=== PATIENT | female | born 1955 | race Caucasian/White ===

== ENCOUNTER 2019-12-27 08:57 | Outpatient (CLI) | payer OTHER, SELFPAY ==
--- NOTE | 2020-01-05 15:10 | WPDSIXMINUTE ---
Six Minute Walk Six Minute Walk: DOS: 12/27/2019 REQUESTING: Dr. Burns REASON FOR TESTING: COPD SIX MINUTE WALK This test was conducted per ATS guidelines. Initial saturation was 95% and pulse was 70. Saturation remained normal with the final saturation of 97%. Pulse increased to 96 beats per minute. Ending pulse was 79, ending saturation 97%. Patient walked 600 ft/ 183 m. IMPRESSION: This walk study Shows no desaturation. Heart rate response is normal. Distance walked is less than expected for age.
--- NOTE | 2020-01-05 15:13 | WPDPFTINT ---
PFT Interpretation PFT Interpretation: DOS: 12/27/2019 REQUESTING: Dr. Menjivar REASON FOR TESTING: COPD PULMONARY FUNCTION TESTS Results are reliable and reproducible Spirometry: FEV1 normal, 80% predicted, 1.7 L. FVC 107% normal. FEV1% is decreased, consistent with airflow obstruction. [id number]% is severely decreased 23% predicted. There is no change after bronchodilator administration. Lung volumes: TLC 131% mildly increased consistent with mild hyperinflation. RV 170% severe air trapping. normal airway resistance Diffusion: DLCO 59% moderately decreased Flow volume loop: Scooping of the expiratory limb IMPRESSION: Mild airflow obstruction which is severe in the small airways, mild hyperinflation, severe air trapping with moderate diffusion impairment. No change with bronchodilator. Lack of response to bronchodilator should not preclude use if clinically indicated. This pattern is consistent with COPD. Sarahi Ramirez MD
== END 2019-12-27 08:58 | disposition home or self-care (01) ==
PROVIDERS: PCP Nurse Practitioner Family; Visit Provider Internal Medicine Critical Care Medicine
DX: J44.9 Chronic obstructive pulmonary disease, unspecified (principal)
CPT/HCPCS: 94060; 94618; 94726; 94729

== ENCOUNTER 2020-01-20 14:21 | Emergency (ER) | payer OTHER, SELFPAY ==
[2020-01-20] VITALS (8 sets, daily range): BP systolic 131–153; BP diastolic 84–105; PULSE 80–151; RESP 14–24; TEMP 36.5; O2SAT 92–100
--- NOTE | ~2020-01-20 | XR_ITS ---
EXAMINATION: XR chest 2V DATE: 01/20/2020 15:16 INDICATION: Atrial fibrillation. TECHNIQUE: Frontal and lateral views of the chest were obtained. COMPARISON: Chest 2 views 11/18/2007, CT abdomen and pelvis 09/23/2017 FINDINGS: There is mild atelectasis in the lower lung zones. No pleural effusion or pneumothorax. The heart size is normal. There are prominent paracardial fat pads. IMPRESSION: 1. Mild atelectasis in the lower lung zones. Reviewed, dictated and finalized at location A.
--- NOTE | 2020-01-20 14:24 | ECG_ITS ---
Measurements Intervals [place] Rate: 141 P: [place]: 0 QRS: -16 QRSD: 86 T: 74 QT: 290 QTc: 444 Interpretive Statements ATRIAL FIBRILLATION WITH RAPID VENTRICULAR RESPONSE VENTRICULAR PREMATURE COMPLEX DELAYED PRECORDIAL R/S TRANSITION NONSPECIFIC ST & T-WAVE ABNORMALITY- HIGH LATERAL LEADS ABNORMAL ECG Electronically Signed On 01-20-2020 14:37:06 CDT by Vinnie Rdz D.O.
[2020-01-20 14:44] LABS: Hemoglobin 15.5 g/dL (12.0-15.0); Mean Corpuscular Hemoglobin 29.4 pg (26-34); Mean Platelet Volume 8.8 fl (7.4-10.4); Platelet Count Result 396 k/mm3 (150-375); Red Blood Count 5.28 M/mm3 (4.2-5.4); White Blood Count 13.7 K/mm3 (4.5-10.0)
[2020-01-20 14:54] LABS: INR 1.3; Prothrombin Time 15.9 Seconds (11.1-14.7)
[2020-01-20 14:55] LABS: Partial Thromboplastin Time 31.4 SECONDS (22.3-36.8)
[2020-01-20 14:56] LABS: Anion Gap 10 mmol/L (8-16); Blood Urea Nitrogen 17 mg/dL (7-17); Calcium 9.8 mg/dL (8.4-10.2); Carbon Dioxide 26 mmol/L (22-30); Chloride 103 mmol/L (98-107); Estimated CRCL calculation 67 ml/min; Estimated Glomerular Filt Rate 56; Glucose 109 mg/dL (65-105); Potassium 4.5 mmol/L (3.4-5.0); Sodium 139 mmol/L (137-145)
[2020-01-20] MEDS: dilTIAZem HCl INJ 25 MG/5 ML VIAL 10 MG IV PUSH (14:58)
[2020-01-20 15:08] LABS: Troponin I < 0.012 ng/mL (0.000-0.034)
[2020-01-20 15:14] LABS: Band Neutrophils Percent 1 % (0-6); Eosinophils Absolute Manual 0.13 K/mm3 (0.02-0.5); Eosinophils Percent Manual 1 % (0-4); Lymphocytes Absolute Manual 4.93 K/mm3 (1.1-4.5); Monocytes Absolute Manual 0.82 K/mm3 (0.1-0.90); Monocytes Percent Manual 6 % (3-9); Neutrophils Percent Manual 56 % (46-73); Total Cells Counted 100
[2020-01-20 15:15] LABS: Anisocytosis 2+ (NORMAL)
--- NOTE | 2020-01-20 15:50 | ED.ARRPALP ---
HPI - Arrhythmia/Palpitations General Chief Complaint: Arrhythmia/Palpitations Stated Complaint: afib Time Seen by Provider: 01/20/20 14:41 History of Present Illness HPI narrative: Patient is a 64-year-old female who presents to the ER with an arrhythmia. Patient went to her pulmonology appointment today and was told that she is in atrial fibrillation with RVR. Prior to this she had not been having chest pain or shortness of breath. No exertional fatigue orthopnea. Upon learning that she was tachycardic patient became extremely anxious and tearful. She was having trouble controlling her emotions. She does have history of anxiety for which she takes Ativan. Related Data Home Medications Medication Instructions Recorded Confirmed albuterol sulfate INHALATION 01/20/20 atorvastatin 01/20/20 budesonide-formoterol [Symbicort] INHALATION 01/20/20 buspirone mg 01/20/20 diltiazem HCl PO 01/20/20 duloxetine mg PO 01/20/20 ergocalciferol (vitamin D2) 01/20/20 levothyroxine 01/20/20 lisinopril 01/20/20 lorazepam 01/20/20 metformin mg PO 01/20/20 metoprolol succinate PO 01/20/20 rivaroxaban [Xarelto] mg 01/20/20 01/20/20 tiotropium bromide [Spiriva INHALATION 01/20/20 Respimat] Allergies Allergy/AdvReac Type Severity Reaction Status Date / Time adhesive tape Allergy Intermediate Itching Verified 01/20/20 15:58 Review of Systems Review of Systems: All systems reviewed & are unremarkable except as noted in HPI and below Constitutional: Constitutional: Denies chills, Denies fever(s) and Denies weakness ENT: Denies nasal congestion and Denies sore throat Cardiovascular: Cardiovascular: Denies chest pain, Denies rapid heart rate and Denies radiating jaw, neck or arm pain Respiratory: Respiratory: Denies cough, Denies dyspnea and Denies wheezing Gastrointestinal: Gastrointestinal: Denies nausea and Denies vomiting Psychiatric: Psychiatric: Reports anxiety [facility] Past Medical History Medical History (Updated 01/20/20 @ 18:34 by Toño Shetty MD) Anxiety Atrial fibrillation COPD (chronic obstructive pulmonary disease) Depression GERD (gastroesophageal reflux disease) History of intestinal obstruction Hypertension Kidney stones Surgical History Surgical History (Updated 01/20/20 @ 15:52 by Toño Shetty MD) History of section History of cholecystectomy Social History Social History Gender identity (if verbalized by the patient): Female Exam Narrative: Exam Narrative: GENERAL: Anxious and tearful-appearing, well-nourished. HEAD: Normocephalic, atraumatic. ENT: Mucous membranes moist. CHEST: Clear to auscultation. No respiratory distress. HEART: Tachycardic and irregular regular. Normal peripheral pulses. ABDOMEN: Soft, nontender, nondistended. EXTREMITIES: Normal range of motion. No edema. NEURO: Alert and oriented x3. PSYCH: Anxious but normal thought content no hallucinations.. Course Course Emergency Course: Patient was in A. fib RVR. She received 25 mg of diltiazem IV which did not convert her heart rate. She was then started on a diltiazem drip at 5 mg/h. She then converted to a sinus rhythm. Patient feels much better and would like to go home. I have contacted Surinder CLEARY with [facility] who is nonprofit director for Dr. Navarro. Reports patient can continue her home medications and follow-up in the clinic. Patient verbalized understanding this. Discharge home. Vital Signs Vital signs: Vital Signs Temperature 97.7 F 01/20/20 14:25 Pulse Rate 119 H 01/20/20 14:25 Respiratory Rate 20 01/20/20 14:25 Blood Pressure 153/105 H 01/20/20 14:25 Pulse Oximetry 100 01/20/20 14:25 Temperature 97.7 F 01/20/20 14:25 Pulse Rate 80 01/20/20 17:44 Respiratory Rate 18 01/20/20 17:44 Blood Pressure 136/88 01/20/20 17:44 Pulse Oximetry 100 01/20/20 17:44 MDM - Arrhythmia/Palpitations Lab Data Result diagrams: 01/19
[2020-01-20] MEDS: LORazepam INJ (*CRX) 2 MG/ML VIAL 1 MG IV PUSH (15:53)
[2020-01-20] MEDS: dilTIAZem HCl INJ 25 MG/5 ML VIAL 15 MG IV PUSH (15:57)
[2020-01-20 18:37] LABS: Troponin I < 0.012 ng/mL (0.000-0.034)
== END 2020-01-20 18:54 | disposition home or self-care (01) ==
PROVIDERS: Emergency Provider Emergency Medicine; PCP Nurse Practitioner Family
DX: I48.91 Unspecified atrial fibrillation (principal); J44.9 Chronic obstructive pulmonary disease, unspecified; K21.9 Gastro-esophageal reflux disease without esophagitis; F32.9 Major depressive disorder, single episode, unspecified; F41.9 Anxiety disorder, unspecified; I10 Essential (primary) hypertension; Z87.442 Personal history of urinary calculi
CPT/HCPCS: 36415; 71046; 80048; 84484; 85025; 85610; 85730; 93005; 96365; 96366; 96375; 96376; 99284; J2060

== ENCOUNTER 2020-06-07 19:37 | Emergency (ER) | payer SELFPAY ==
[2020-06-07 19:37] VITALS: BP 143/107; PULSE 83; RESP 24; TEMP 36.8; O2SAT 94
--- NOTE | 2020-06-07 19:52 | ED.ARRPALP ---
HPI - Arrhythmia/Palpitations General Chief Complaint: Arrhythmia/Palpitations Stated Complaint: numbness all over/afib History of Present Illness HPI narrative: 64 yo female w/ h/o atrial fibrillation, anxiety, DM presents to the ED for palpitations. She reports that she began to feel numb all over. and called for EMS when they arrived they found her to be in atrial fibrillation with a rate of 170. On the way to the ED she converted to sinus rhythm. She is not having any symptoms at this time. She had not taken eliquis for the past 4 days due to dental extractions, but resumed today. No chest pain ,SOB. Related Data Home Medications Medication Instructions Recorded Confirmed albuterol sulfate INHALATION 01/20/20 atorvastatin 10 mg PO DAILY 01/20/20 budesonide-formoterol [Symbicort] INHALATION 01/20/20 buspirone mg 01/20/20 diltiazem HCl 120 mg PO DAILY 01/20/20 duloxetine 60 mg PO DAILY 01/20/20 ergocalciferol (vitamin D2) 01/20/20 levothyroxine 01/20/20 lisinopril 01/20/20 lorazepam 01/20/20 metformin 500 mg PO DAILY 01/20/20 metoprolol succinate 100 mg PO DAILY 01/20/20 rivaroxaban [Xarelto] mg 01/20/20 01/20/20 tiotropium bromide [Spiriva INHALATION 01/20/20 Respimat] Allergies Allergy/AdvReac Type Severity Reaction Status Date / Time adhesive tape Allergy Intermediate Itching Verified 01/20/20 15:58 Review of Systems Review of Systems: All systems reviewed & are unremarkable except as noted in HPI and below Constitutional: Constitutional: Denies fever(s) and Denies weakness Eyes: Eyes: Reports no additional eye complaints ENT: Reports system reviewed and no additional complaints, except as documented Cardiovascular: Cardiovascular: Denies chest pain and Reports rapid heart rate Respiratory: Respiratory: Denies dyspnea Gastrointestinal: Gastrointestinal: Denies abdominal pain, Denies nausea and Denies vomiting Genitourinary: Genitourinary: Reports no additional female genitourinary complaints Neurologic: Reports system reviewed and no additional complaints, except as documented [facility] Past Medical History Medical History Anxiety Atrial fibrillation COPD (chronic obstructive pulmonary disease) Depression GERD (gastroesophageal reflux disease) History of intestinal obstruction Hypertension Kidney stones Surgical History Surgical History History of section History of cholecystectomy Social History Social History Gender identity (if verbalized by the patient): Female Exam Const: General: no acute distress and alert Nutritional Appearance: obese Orientation/consciousness: patient oriented x3 HENMT: Head: normal to inspection Eyes: Conjunctivae: conjunctivae normal Pupils: Equal, round and reactive pupils present EOM: EOMs intact bilaterally Neck: Neck: normal visual inspection Resp: Effort & Inspection: normal respiratory effort Auscultation: clear to auscultation bilaterally Cardio: Rate: regular rate Rhythm: regular rhythm Skin: General skin exam: normal color Neuro: General: patient oriented x3, moves all extremities, no focal motor deficits and CN's II-XI intact bilaterally Speech: normal speech Gait exam (Neuro): Normal gait present Extrem: General: normal to inspection Course Vital Signs Vital signs: Vital Signs Temperature 36.8 C 06/07/20 19:37 Pulse Rate 83 06/07/20 19:37 Respiratory Rate 24 H 06/07/20 19:37 Blood Pressure 143/107 H 06/07/20 19:37 Pulse Oximetry 94 06/07/20 19:37 Temperature 36.8 C 06/07/20 19:37 Pulse Rate 87 06/07/20 21:20 Respiratory Rate 16 06/07/20 21:20 Blood Pressure 147/97 H 06/07/20 21:20 Pulse Oximetry 94 06/07/20 21:20 MDM - Arrhythmia/Palpitations MDM Narrative Medical decision making narrative:
--- NOTE | 2020-06-07 19:53 | ECG_ITS ---
Measurements Intervals [place] Rate: 78 P: 51 MN: 162 QRS: -32 QRSD: 85 T: 44 QT: 382 QTc: 437 Interpretive Statements SINUS RHYTHM LEFT AXIS DEVIATION LEFT ATRIAL ENLARGEMENT DELAYED PRECORDIAL R/S TRANSITION BORDERLINE ECG Electronically Signed On 06-08-2020 7:05:08 APPRAISER AUDITOR by Vinnie Rdz D.O.
[2020-06-07 20:09] LABS: Basophils Absolute Auto 0.1 K/mm3 (0.0-0.1); Basophils Percent Auto 0.7 % (0.2-1.2); Eosinophils Absolute Auto 0.2 K/mm3 (0-0.3); Eosinophils Percent Auto 1.4 % (0-4.4); Hematocrit 48.5 % (37.0-47.0); Hemoglobin 15.9 g/dL (12.0-15.0); Immature Granulocyte Absolute 0.06 K/mm3 (0.00-0.031); Immature Granulocyte Percent A 0.5 % (0-0.5); Lymphocytes Absolute Auto 2.89 K/mm3 (0.9-3.2); Mean Corpuscular HGB Conc 32.8 g/dl (32-36); Mean Corpuscular Hemoglobin 29.7 pg (26-34); Mean Corpuscular Volume 90.5 fl (80-100); Mean Platelet Volume 9.5 fl (7.4-10.4); Monocytes Absolute Auto 0.9 K/mm3 (0.1-0.6); Monocytes Percent Auto 6.7 % (2.6-8.5); Neutrophils Absolute Auto 9.1 K/mm3 (1.3-6.7); Neutrophils Percent Auto 68.7 % (45.5-73.1); Platelet Count Result 341 k/mm3 (150-375); Red Blood Count 5.36 M/mm3 (4.2-5.4); Red Cell Distribution Width 15.7 % (11.5-14.5); White Blood Count 13.2 K/mm3 (4.5-10.0)
[2020-06-07 20:28] LABS: INR 1.1; Prothrombin Time 14.6 Seconds (11.1-14.7)
[2020-06-07 20:29] LABS: Partial Thromboplastin Time 31.1 SECONDS (22.3-36.8)
[2020-06-07 21:20] VITALS: BP 147/97; PULSE 87; RESP 16; O2SAT 94
[2020-06-07 21:21] LABS: Anion Gap 7 mmol/L (8-16); Blood Urea Nitrogen 23 mg/dL (7-17); Calcium 9.6 mg/dL (8.4-10.2); Carbon Dioxide 28 mmol/L (22-30); Chloride 103 mmol/L (98-107); Estimated CRCL calculation 50 ml/min; Estimated Glomerular Filt Rate 38; Glucose 164 mg/dL (65-105); Potassium 3.9 mmol/L (3.4-5.0); Sodium 138 mmol/L (137-145)
[2020-06-07 21:33] LABS: Troponin I < 0.012 ng/mL (0.000-0.034)
== END 2020-06-07 21:47 | disposition home or self-care (01) ==
PROVIDERS: Emergency Provider Emergency Medicine; PCP Nurse Practitioner Family
DX: I48.91 Unspecified atrial fibrillation (principal); F41.9 Anxiety disorder, unspecified; J44.9 Chronic obstructive pulmonary disease, unspecified; F32.9 Major depressive disorder, single episode, unspecified; K21.9 Gastro-esophageal reflux disease without esophagitis; I10 Essential (primary) hypertension
CPT/HCPCS: 36415; 80048; 84484; 85025; 85610; 85730; 93005; 99284

== ENCOUNTER → 2021-08-01 08:04 | Outpatient (CLI) | payer BC, SELFPAY ==
--- NOTE | ~2021-08-01 | MMUS_ITS ---
EXAMINATION: MM diagnostic joy BI w jen, US breast LT complete HISTORY: Breast pain. History of DCIS. TECHNIQUE: ML, MLO and CC 3-D tomosynthesis images of both breasts and additional compression 3-D Tomosynthesis views of left breast were performed and synthetic 2-D images were generated. Rotated lateral craniocaudal views of each breast. CAD analysis was submitted and interpreted. High resolution complete left breast ultrasound including all 4 quadrants and subareolar area was performed. COMPARISON: 03/17/2019, 08/11/2017, 08/16/2016 bilateral screening mammogram examinations BREAST PARENCHYMAL COMPOSITION: There are scattered areas of fibroglandular density. 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 No suspicious mass or interval architectural distortion, malignant calcification, skin thickening or retraction of the right breast is evident. Left breast: Increased density is noted in the posterior lateral left breast. There is focal linear prominence in the slightly medial lower left subareolar area. Possible 7.5 mm mass in the lower mid left breast suggested on CC projection. Left complete breast ultrasound examination was performed. ULTRASOUND: 12:00 4.5 cm from nipple: There is a focal hypoechoic area 5.5 mm deep to the skin, measuring up to 5.7 mm width, with very prominent posterior shadowing in the area of an overlying scar. Ultrasound-guided biopsy is recommended. 1:00 5 cm from nipple: Parallel circumscribed sonolucency measuring 7.8 x 4.4 x 10 mm, with through transmission, consistent with cyst Subareolar area: Parallel circumscribed 7.2 x 4 x 6.5 mm parallel circumscribed hypoechoic lesion with through transmission, likely benign IMPRESSION: 1. Approximately 5.7 mm hypoechoic area with very prominent posterior shadowing at left breast 12:00 4.5 cm from nipple 2. Ultrasound-guided biopsy of left breast 12:00 areas recommended BI-RADS category 4, suspicious findings. Dr. Zepeda telephoned the report and ultrasound-guided biopsy recommendation on 07/2021 at 1111 hours to Darling PAIZ
== END ==
PROVIDERS: PCP Nurse Practitioner Family; Visit Provider Obstetrics & Gynecology
DX: N64.4 Mastodynia (principal); R92.8 Other abnormal and inconclusive findings on diagnostic imaging of breast
CPT/HCPCS: 76641; 77062; 77066; G0279

== ENCOUNTER 2021-08-01 08:08 | Outpatient (CLI) | payer BC, SELFPAY ==
--- NOTE | ~2021-08-01 | XR_ITS ---
EXAMINATION: XR chest 2V DATE: 08/01/2021 12:52 INDICATION: Cough and shortness of breath. Legionella pneumonia. TECHNIQUE: Frontal and lateral views of the chest were obtained. COMPARISON: Chest 2 views 01/20/2020 FINDINGS: There is mild atelectasis in left lower lung zone. No pleural effusion or pneumothorax. The heart size is normal. There are prominent paracardial fat pads. IMPRESSION: 1. Mild atelectasis in left lower lung zone. Reviewed, dictated and finalized at location B.
== END 2021-08-01 08:09 ==
PROVIDERS: PCP Nurse Practitioner Family; Visit Provider Nurse Practitioner
DX: A48.1 Legionnaires' disease (principal); J98.11 Atelectasis
CPT/HCPCS: 71046

== ENCOUNTER 2022-03-31 17:02 | Observation (INO) | payer BC, SELFPAY ==
[2022-03-31] VITALS (20 sets, daily range): BP systolic 134–148; BP diastolic 72–98; PULSE 67–83; RESP 16–21; TEMP 36.1–36.4; O2SAT 87–99; BMI 48.7
--- NOTE | ~2022-03-31 | XR_ITS ---
EXAMINATION: XR chest 2V Exam Date/Time: 03/31/2022 18:10 ELECTRICIAN OUTSIDE HISTORY: SOB, difficult catching breath, weak, hx copd Comparison: 08/01/2021. RESULT: Lines, tubes, and devices: None. Lungs and pleura: Clear. Emphysematous change. Left lower lung scar. Cardiomediastinal silhouette: Stable. Other: No acute osseous or upper abdominal finding. IMPRESSION: No acute cardiopulmonary process. Reviewed, dictated and finalized at location K. TRICIAN OUTSIDE
--- NOTE | 2022-03-31 17:07 | ECG_ITS ---
Measurements Intervals [place] Rate: 79 P: 51 CO: 166 QRS: -11 QRSD: 89 T: 53 QT: 380 QTc: 436 Interpretive Statements SINUS RHYTHM FREQUENT VENTRICULAR PREMATURE COMPLEXES BORDERLINE R WAVE PROGRESSION, ANTERIOR LEADS BORDERLINE ST-T WAVE ABNORMALITY- HIGH LATERAL LEADS ABNORMAL ECG COMPARED TO ECG 06/07/2020 19:47:29 FREQUENT VENTRICULAR PREMATURE COMPLEXES NOW PRESENT Electronically Signed On 04-01-2022 7:48:15 DIVERSITY INTERN by Vinnie Rdz D.O.
[2022-03-31 18:14] LABS: Influenza A QL RT-PCR Negative (Negative); Influenza B QL RT-PCR Negative (Negative); SARS-CoV-2 RNA PCR Negative
--- NOTE | 2022-03-31 19:38 | ED.GENADULT ---
HPI - General Adult General Chief complaint: Shortness of Breath/Dyspnea Stated complaint: Shortness of breath x 2 days Time Seen by Provider: 03/31/22 19:28 Source: RN notes reviewed History of Present Illness HPI narrative: Patient presents emergency department from home for shortness of breath. Patient states he has been feeling increasingly short of breath for the past 2 days. States has been associate with a cough this been productive of yellow sputum. Patient states she has a history of COPD and is normally on oxygen at night but not during the day. She denies any fevers or chills or chest pain she denies any abdominal pain nausea or vomiting. States she has been using her inhaler at home with minimal relief states she no longer smokes cigarettes. Patient is currently on Xarelto which she has been taking Related Data Home Medications Medication Instructions Recorded Confirmed albuterol sulfate 90 mcg/actuation inhalation 01/20/20 07/09/21 aerosol inhaler atorvastatin 10 mg tablet 10 mg PO DAILY 01/20/20 07/09/21 budesonide-formoterol HFA 160 inhalation 01/20/20 07/09/21 mcg-4.5 mcg/actuation aerosol inhaler (Symbicort) buspirone 7.5 mg tablet mg 01/20/20 07/09/21 diltiazem HCl 120 mg 120 mg PO DAILY 01/20/20 07/09/21 capsule,extended release 24 hr duloxetine 60 mg capsule,delayed 60 mg PO DAILY 01/20/20 07/09/21 release levothyroxine 100 mcg tablet 01/20/20 07/09/21 lisinopril 20 mg tablet 01/20/20 07/09/21 lorazepam 0.5 mg tablet 01/20/20 07/09/21 metformin 500 mg tablet,extended 500 mg PO DAILY 01/20/20 07/09/21 release 24 hr metoprolol succinate 100 mg 100 mg PO DAILY 01/20/20 07/09/21 tablet,extended release 24 hr rivaroxaban 20 mg tablet (Xarelto) mg 01/20/20 07/09/21 tiotropium bromide 2.5 inhalation 01/20/20 07/09/21 mcg/actuation mist for inhalation (Spiriva Respimat) digoxin 125 mcg (0.125 mg) tablet 125 mcg PO DAILY 07/09/21 07/09/21 diltiazem HCl 360 mg capsule,24 360 mg PO DAILY 07/09/21 07/09/21 hr,extended release (Tiadylt ER) semaglutide 0.25 mg or 0.5 mg (2 0.25 mg subcut WEEKLY 07/09/21 07/09/21 mg/1.5 mL) subcutaneous pen injector (Ozempic) sotalol 80 mg tablet 80 mg PO DAILY 07/09/21 07/09/21 Allergies Allergy/AdvReac Type Severity Reaction Status Date / Time adhesive tape Allergy Intermediate Itching Verified 07/09/21 08:44 Review of Systems Review of Systems: Gen.: Denies fevers or chills ENT: Denies congestion Respiratory: See HPI CV: Denies chest pain or palpitations GI: Denies abdominal pain nausea, emesis or diarrhea Musculoskeletal: Denies back pain or muscle pain Neuro: Denies numbness, tingling, weakness or focal weakness Skin: Denies rash Except as documented, all other systems reviewed and negative [facility] Past Medical History Medical History Anxiety Atrial fibrillation Breast cancer bilateral carcinoma ductal COPD (chronic obstructive pulmonary disease) Depression Diabetes GERD (gastroesophageal reflux disease) History of intestinal obstruction Hypertension Kidney stones Screening mammogram for breast cancer Surgical History Surgical History (Updated 07/09/21 @ 08:51 by Darling Dyer MA) H/O breast surgery History of section History of cholecystectomy Social History Social History Smoking status: Former smoker Alcohol intake: never Substance use: never Substance use type: does not use Gender identity (if verbalized by the patient): Female Sexual Orientation (if Verbalized by the Patient): Straight or Heterosexual Exam Narrative: APPEARANCE: No acute distress, nontoxic, resting in bed HEENT: Normocephalic, atraumatic OMM RESPIRATORY: Mild respiratory stress, wheezing throughout the bilateral lung miranda decreased breath sounds in the lung bases CARDIOVASCULAR: Regular rate and rhythm with
[2022-03-31] MEDS: methylPREDNISolone SOD SUCC 125 MG VIAL IV PUSH (19:53)
[2022-03-31] MEDS: IPRATROPIUM BR 0.02% INH SOLN 0.5 MG/2.5 ML VIAL INHALATION ×2 (20:03→21:38)
[2022-03-31] MEDS: ALBUTEROL SULFATE NEB 2.5 MG/3 ML INH 5 MG INHALATION ×2 (20:03→21:38)
[2022-03-31 20:11] LABS: Basophils Absolute Auto 0.1 K/mm3 (0.0-0.1); Basophils Percent Auto 0.9 % (0.2-1.2); Eosinophils Absolute Auto 0.2 K/mm3 (0-0.3); Eosinophils Percent Auto 1.3 % (0-4.4); Hemoglobin 14.9 g/dL (12.0-15.0); Immature Granulocyte Absolute 0.08 K/mm3 (0.00-0.031); Immature Granulocyte Percent A 0.7 % (0-0.5); Lymphocytes Absolute Auto 2.42 K/mm3 (0.9-3.2); Lymphocytes Percent Auto 21.6 % (18.3-44.2); Mean Corpuscular HGB Conc 31.7 g/dl (32-36); Mean Corpuscular Hemoglobin 29.3 pg (26-34); Mean Corpuscular Volume 92.5 fl (80-100); Mean Platelet Volume 9.1 fl (7.4-10.4); Monocytes Absolute Auto 1.2 K/mm3 (0.1-0.6); Monocytes Percent Auto 10.7 % (2.6-8.5); Neutrophils Absolute Auto 7.2 K/mm3 (1.3-6.7); Neutrophils Percent Auto 64.8 % (45.5-73.1); Platelet Count Result 390 k/mm3 (150-375); Red Blood Count 5.08 M/mm3 (4.2-5.4); Red Cell Distribution Width 14.6 % (11.5-14.5); White Blood Count 11.2 K/mm3 (4.5-10.0)
[2022-03-31 20:23] LABS: INR 1.5; Prothrombin Time 17.5 Seconds (11.1-14.7)
[2022-03-31 20:24] LABS: Partial Thromboplastin Time 30.4 SECONDS (22.3-36.8)
[2022-03-31 20:25] LABS: Alanine Aminotransferase 34 U/L (6-35); Albumin Level 4.4 g/dL (3.5-5.1); Alkaline Phosphatase 168 U/L (38-126); Anion Gap 8 mmol/L (8-16); Aspartate Amino Transferase 28 U/L (14-36); Bilirubin,Total 0.3 mg/dL (0.2-1.3); Blood Urea Nitrogen 18 mg/dL (7-17); Calcium 9.2 mg/dL (8.4-10.2); Carbon Dioxide 27 mmol/L (22-30); Chloride 103 mmol/L (98-107); Estimated CRCL calculation 59 ml/min; Estimated Glomerular Filt Rate > 60; Glucose 168 mg/dL (65-110); Potassium 4.1 mmol/L (3.4-5.0); Sodium 138 mmol/L (137-145)
--- NOTE | 2022-03-31 22:57 | ADMGEN ---
This patient, Samia Levy, was admitted to 3 [facility] Surg Room 317-01. Patient/family oriented to hospital policies and general routines including ID bracelet, bed and alarms, visiting hours, pain management, procedures, bathroom and other care routines, personal items, smoking policy, room service/diet, and visiting hours. Information on how to activate the Rapid Response Team has been discussed. Patient/Family are encouraged to report perceived risks to care and to ask questions if they do not understand what they are told or what they should do.
[2022-04-01] VITALS (12 sets, daily range): BP systolic 152–175; BP diastolic 86–98; PULSE 76–89; RESP 16–22; TEMP 36.1–36.3; O2SAT 93–99
[2022-04-01] MEDS: LORazepam (*CRX) 0.5 MG TABLET PO ×2 (00:16→09:37)
--- NOTE | 2022-04-01 00:37 | PM.IMHP ---
H&P: HPI History of Present Illness Date/Time: 04/01/22 00:37 Chief Complaint: Dyspnea Narrative: Patient is a 66-year-old female with past medical history of atrial fibrillation, COPD on 3 L home oxygen therapy at night, anxiety/depression, GERD, essential hypertension, type 2 diabetes, hyperlipidemia presents to ED with complaints of dyspnea. Patient had a recent upper viral infection and has developed worsening dyspnea over last couple days. She lives alone with family nearby. She no longer smokes. She is on albuterol and inhaler breztri. She has been dealing with her COPD for a long time and would like to go home as soon as possible. In the ED: Patient was given DuoNeb, Solu-Medrol 125 mg. Chest x-rays negative. Patient is having dyspnea increased oxygen requirements compared to her baseline. Patient admitted for observation for COPD exacerbation. Review of Systems Review of Systems: Constitutional: No Fever, No Chills, No Night Sweats, No Fatigue, No Malaise ENT/Mouth: No Hearing Changes, No Ear Pain, No Nasal Congestion, No Sinus Pain, No Hoarseness, No sore throat, No Rhinorrhea, No Swallowing Difficulty Eyes: No Eye Pain, No Redness, No Vision Changes Cardiovascular: No Chest Pain, No Palpitations, No Dyspnea on Exertion, No Orthopnea, No Claudication, No Edema Respiratory: No Cough, No Sputum, No Wheezing, No Shortness of Breath Gastrointestinal: No Nausea, No Vomiting, No Diarrhea, No Constipation, No Abdominal Pain, No Heartburn, No Hematochezia, No Melena Genitourinary: No Dysuria, No Urinary Frequency, No Hematuria, No Urinary Incontinence, No Urgency Musculoskeletal: No Arthralgias, No Myalgias, No Joint Swelling, No Joint Stiffness, No Back Pain Skin: No Skin Lesions, No Pruritis, No Hair Changes Neuro: No Weakness, No Numbness, No Paresthesias, No Loss of Consciousness, No Syncope, No Dizziness, No Headache Psych: No Anxiety/Panic, No Depression, No Insomnia Heme: No Bruising, No Bleeding Lymph: No Adenopathy Endocrine: No Polyuria, No Polydipsia, No Temperature Intolerance PMFSH Past Medical History Medical History Anxiety Atrial fibrillation Breast cancer bilateral carcinoma ductal COPD (chronic obstructive pulmonary disease) Depression Diabetes GERD (gastroesophageal reflux disease) History of intestinal obstruction Hypertension Kidney stones Screening mammogram for breast cancer Surgical History Surgical History H/O breast surgery History of section History of cholecystectomy Social History Social History Smoking packs per day: 1 Smoking cigarettes per day: 20.0 Smoking status: Former smoker Smoking end date: 03/31/21 Alcohol intake: never Substance use: never Substance use type: does not use Lack of Transportation: No Lack of Food: Never True Current Housing: I Have Housing Concerned About Future Housing: No Difficulty Paying Gas/Electric Bills: No Difficulty Paying for Meds: No Currently Unemployed: No Education: High School Diploma/GED Difficulty w/ Childcare or Family Care: No Gender identity (if verbalized by the patient): Female Sexual Orientation (if Verbalized by the Patient): Straight or Heterosexual Spiritual care concerns: No Meds Home Medications and Allergies Home Medications Medication Instructions Recorded Confirmed Type albuterol sulfate 90 mcg/actuation 2 puff inhalation Q12H 01/20/20 03/31/22 History aerosol inhaler atorvastatin 10 mg tablet 10 mg PO DAILY 01/20/20 03/31/22 History buspirone 7.5 mg tablet 15 mg BID 01/20/20 03/31/22 History duloxetine 60 mg capsule,delayed 60 mg PO DAILY 01/20/20 03/31/22 History release lorazepam 0.5 mg tablet 0.5 mg PO TID PRN Anxiety 01/20/20 03/31/22 History metoprolol succinate 100 mg 25 m
--- NOTE | 2022-04-01 02:41 | PCRCNOTE ---
Pt asleep and not want to be waken, RN informed.
[2022-04-01] MEDS: methylPREDNISolone SOD SUCC 125 MG VIAL 60 MG IV PUSH ×2 (05:53→14:11)
[2022-04-01] MEDS: ALBUTEROL SULFATE NEB 2.5 MG/3 ML INH 5 MG INHALATION ×2 (06:20→15:50)
[2022-04-01 07:11] LABS: Basophils Percent Auto 0.5 % (0.2-1.2); Eosinophils Percent Auto 0.1 % (0-4.4); Hematocrit 49.8 % (37.0-47.0); Hemoglobin 15.8 g/dL (12.0-15.0); Immature Granulocyte Absolute 0.06 K/mm3 (0.00-0.031); Immature Granulocyte Percent A 0.7 % (0-0.5); Lymphocytes Absolute Auto 1.27 K/mm3 (0.9-3.2); Lymphocytes Percent Auto 14.9 % (18.3-44.2); Mean Corpuscular HGB Conc 31.7 g/dl (32-36); Mean Corpuscular Hemoglobin 29.3 pg (26-34); Mean Corpuscular Volume 92.4 fl (80-100); Mean Platelet Volume 9.2 fl (7.4-10.4); Monocytes Absolute Auto 0.1 K/mm3 (0.1-0.6); Monocytes Percent Auto 1.3 % (2.6-8.5); Neutrophils Percent Auto 82.5 % (45.5-73.1); Platelet Count Result 373 k/mm3 (150-375); Red Blood Count 5.39 M/mm3 (4.2-5.4); Red Cell Distribution Width 14.6 % (11.5-14.5); White Blood Count 8.5 K/mm3 (4.5-10.0)
[2022-04-01 07:22] LABS: Alanine Aminotransferase 36 U/L (6-35); Albumin Level 4.5 g/dL (3.5-5.1); Alkaline Phosphatase 163 U/L (38-126); Anion Gap 9 mmol/L (8-16); Aspartate Amino Transferase 34 U/L (14-36); Bilirubin,Total 0.4 mg/dL (0.2-1.3); Blood Urea Nitrogen 22 mg/dL (7-17); Calcium 9.2 mg/dL (8.4-10.2); Carbon Dioxide 25 mmol/L (22-30); Chloride 99 mmol/L (98-107); Estimated CRCL calculation 71 ml/min; Estimated Glomerular Filt Rate > 60; Glucose 264 mg/dL (65-110); Potassium 4.7 mmol/L (3.4-5.0); Sodium 133 mmol/L (137-145)
[2022-04-01 07:50] LABS: Hemoglobin A1C 8.3 % (<5.7)
[2022-04-01] MEDS: IPRATROPIUM BR 0.02% INH SOLN 0.5 MG/2.5 ML VIAL INHALATION ×2 (08:22→15:50)
[2022-04-01 08:23] LABS: Glucose Point of Care 261 mg/dl (65-105)
[2022-04-01] MEDS: FLUTICASONE/UMECLIDIN/VILANTER 100-62.5-25 MCG ELLIPTA 1 PUFF INHALATION (08:27)
[2022-04-01] MEDS: MAGNESIUM OXIDE 400 MG TABLET PO ×2 (08:57→17:23)
[2022-04-01] MEDS: INSULIN ASPART (*BKC) 100 UNITS/ML SUB-Q ×3 (08:57→17:20)
[2022-04-01] MEDS: SOTALOL HCL 80 MG TABLET PO (08:58)
[2022-04-01] MEDS: LOSARTAN POTASSIUM 50 MG TABLET PO (08:59)
[2022-04-01] MEDS: buPROPion HCL XL (24 HR) 150 MG TABCR PO (08:59)
[2022-04-01] MEDS: busPIRone HCL 10 MG TABLET PO (08:59)
[2022-04-01] MEDS: METOPROLOL TARTRATE 50 MG TAB PO (08:59)
[2022-04-01] MEDS: ATORVASTATIN 10 MG TABLET PO (09:00)
[2022-04-01] MEDS: busPIRone HCL 5 MG TABLET PO (09:00)
[2022-04-01] MEDS: DIGOXIN TAB 125 MCG TABLET PO (09:05)
--- NOTE | 2022-04-01 10:00 | PM.DS ---
DS: Admitting Diagnosis Discharge Date 04/01/22 1000 Admitting Diagnosis COPD exacerbation DS: Discharge Diagnosis Discharge Diagnosis (1) COPD exacerbation: Code(s): J44.1 - Chronic obstructive pulmonary disease with (acute) exacerbation Status: Acute Assessment and Plan: -patient chronically uses 3 L oxygen by nasal cannula q.h.s., currently on 3 L during the day with worsening COPD, continue steroids and wean as tolerated -COPD exacerbation likely secondary to recent upper respiratory infection, likely viral in origin -steroids: Given Solu-Medrol 125 mg in the ED, continue 60 mg q.8 hours and wean steroids -continue DuoNebs breathing treatments q.6 hours -at home on , will give trelegy -patient is admitted about going home tomorrow, she already has home oxygen therapy, will likely have to send home with steroid taper and adjustment of her oxygen therapy to allow for daily use as well as nightly. Patient is very tight right now and would benefit from IV steroids for a few days Will send patient home with steroids and azithromycin. Will also place an order for a neb machine with treatments (2) Acute respiratory failure with hypoxia: Code(s): J96.01 - Acute respiratory failure with hypoxia Status: Acute Assessment and Plan: See above (3) Hypertension: Code(s): I10 - Essential (primary) hypertension Status: Acute Assessment and Plan: BP stable at this time (4) Atrial fibrillation: Code(s): I48.91 - Unspecified atrial fibrillation Status: Acute Assessment and Plan: Rate is controlled Home medications resumed (5) Diabetes: Code(s): E11.9 - Type 2 diabetes mellitus without complications Status: Acute Assessment and Plan: Glucose is 264 Continue home medications (6) Anxiety: Code(s): F41.9 - Anxiety disorder, unspecified Status: Acute Plan # COPD exacerbation # chronic hypoxic respiratory -patient chronically uses 3 L oxygen by nasal cannula q.h.s., currently on 3 L during the day with worsening COPD, continue steroids and wean as tolerated -COPD exacerbation likely secondary to recent upper respiratory infection, likely viral in origin -steroids: Given Solu-Medrol 125 mg in the ED, continue 60 mg q.8 hours and wean steroids -continue DuoNebs breathing treatments q.6 hours -at home on ztri, will give trelegy -patient is admitted about going home tomorrow, she already has home oxygen therapy, will likely have to send home with steroid taper and adjustment of her oxygen therapy to allow for daily use as well as nightly. Patient is very tight right now and would benefit from IV steroids for a few days # other chronic conditions -type 2 diabetes: Ozempic, sliding scale insulin, Accu-Cheks a.c. HS, hypoglycemia protocol, checking hemoglobin A1c -atrial fibrillation: On anticoagulation Xarelto, rate control with sotalol, metoprolol 50 mg b.i.d. tartrate (verified with pharmacy), Cardizem, digoxin -continue home Mag ox supplement, ergocalciferol -essential hypertension: Cozaar -anxiety/depression: Lorazepam, duloxetine, BuSpar, Wellbutrin -hyperlipidemia: Lipitor Diet: Diabetic diet DVT prophylaxis: On Xarelto Code status: Full code Disposition: Home likely 1-3 days DS: Summary Hospital Course Hospital Course: Patient is a 66-year-old female with past medical history of atrial fibrillation, COPD on 3 L home oxygen therapy at night, anxiety/depression, GERD, essential hypertension, type 2 diabetes, hyperlipidemia presents to ED with complaints of dyspnea.? Patient had a recent upper viral infection and has developed worsening dyspnea over last couple days.? She lives alone with family nearby.? She no longer smokes.? She is on albuterol and inhaler breztri.? She has been dealing with her COPD for a long time and would like to go home as soon as possible. Since admission patient has gotten mul
[2022-04-01] MEDS: DULoxetine HCL 60 MG CAPSULE.DR PO (11:10)
[2022-04-01] MEDS: METOPROLOL TARTRATE 25 MG TABLET PO (11:10)
[2022-04-01 12:08] LABS: Glucose Point of Care 269 mg/dl (65-105)
[2022-04-01 17:21] LABS: Glucose Point of Care 302 mg/dl (65-105)
[2022-04-01] MEDS: RIVAROXABAN 20 MG TABLET PO (17:23)
== END 2022-04-01 17:45 | disposition home or self-care (01) ==
LOC: ANHED 21:28 → ANH3MEDSUR 22:16
PROVIDERS: Emergency Medicine; Admitting Provider Student in an Organized Health Care Education/Training Program; Emergency Provider Emergency Medicine; PCP Nurse Practitioner Family; Visit Provider Chiropractor
DX: J44.1 Chronic obstructive pulmonary disease with (acute) exacerbation (principal); J96.01 Acute respiratory failure with hypoxia; F41.9 Anxiety disorder, unspecified; I48.91 Unspecified atrial fibrillation; F32.A Depression, unspecified; E11.9 Type 2 diabetes mellitus without complications; I10 Essential (primary) hypertension; E78.5 Hyperlipidemia, unspecified; K21.9 Gastro-esophageal reflux disease without esophagitis; R94.31 Abnormal electrocardiogram [ECG] [EKG]; Z20.822 Contact with and (suspected) exposure to COVID-19; Z99.81 Dependence on supplemental oxygen; Z87.891 Personal history of nicotine dependence; Z79.01 Long term (current) use of anticoagulants; Z79.51 Long term (current) use of inhaled steroids; Z79.84 Long term (current) use of oral hypoglycemic drugs; Z79.899 Other long term (current) drug therapy
CPT/HCPCS: 36415; 71046; 80053; 82948; 83036; 85025; 85610; 85730; 87636; 93005; 94640; 96365; 96374; 96375; 96376; 97161; 99285; A9270; G0378; J0456; J1815; J2930

== ENCOUNTER 2022-07-18 09:30 | Outpatient (RCR) | payer MEDICARE, BC, OTHER, SELFPAY ==
[2022-07-18 09:49] VITALS: BMI 49.4
[2022-07-18 11:13] VITALS: BMI 49.4
== END 2022-09-30 08:48 | disposition home or self-care (01) ==
LOC: ANHDMC 09:30
PROVIDERS: PCP Nurse Practitioner Family; Visit Provider Nurse Practitioner Family
DX: E11.65 Type 2 diabetes mellitus with hyperglycemia (principal); Z71.89 Other specified counseling; Z71.3 Dietary counseling and surveillance
CPT/HCPCS: 97802; G0108

== ENCOUNTER 2022-07-23 11:04 | Outpatient (CLI) | payer BC, MEDICARE, OTHER, SELFPAY ==
[2022-07-23 11:29] LABS: Basophils Absolute Auto 0.1 K/mm3 (0.0-0.1); Basophils Percent Auto 0.8 % (0.2-1.2); Eosinophils Absolute Auto 0.2 K/mm3 (0-0.3); Eosinophils Percent Auto 1.5 % (0-4.4); Hematocrit 45.3 % (37.0-47.0); Hemoglobin 14.5 g/dL (12.0-15.0); Immature Granulocyte Absolute 0.09 K/mm3 (0.00-0.031); Immature Granulocyte Percent A 0.7 % (0-0.5); Lymphocytes Percent Auto 25.7 % (18.3-44.2); Mean Corpuscular Hemoglobin 29.3 pg (26-34); Mean Corpuscular Volume 91.5 fl (80-100); Monocytes Absolute Auto 0.9 K/mm3 (0.1-0.6); Monocytes Percent Auto 6.8 % (2.6-8.5); Neutrophils Absolute Auto 8.8 K/mm3 (1.3-6.7); Neutrophils Percent Auto 64.5 % (45.5-73.1); Platelet Count Result 405 k/mm3 (150-375); Red Blood Count 4.95 M/mm3 (4.2-5.4); Red Cell Distribution Width 14.2 % (11.5-14.5); White Blood Count 13.6 K/mm3 (4.5-10.0)
[2022-07-23 15:17] LABS: Alanine Aminotransferase 28 U/L (6-35); Albumin Level 4.4 g/dL (3.5-5.1); Alkaline Phosphatase 143 U/L (38-126); Anion Gap 6 mmol/L (8-16); Aspartate Amino Transferase 24 U/L (14-36); Bilirubin,Total 0.4 mg/dL (0.2-1.3); Blood Urea Nitrogen 16 mg/dL (7-17); CRP 1.9 mg/dL (<1.0); Calcium 9.7 mg/dL (8.4-10.2); Carbon Dioxide 31 mmol/L (22-30); Chloride 100 mmol/L (98-107); Estimated Glomerular Filt Rate 50; Glucose 137 mg/dL (65-110); Potassium 4.4 mmol/L (3.4-5.0); Sodium 137 mmol/L (137-145)
[2022-07-23 15:40] LABS: Erythrocyte Sedimentation Rate 9 mm/hr (0-20)
[2022-07-28 11:51] LABS: BCR/abl Prior Result Not Given
[2022-07-28 12:37] LABS: BCR/abl P190 Not Detected; BCR/abl P210 Not Detected
[2022-07-28 12:38] LABS: BCR/abl P190 Chg YES; BCR/abl P210 Chg YES
== END 2022-07-23 11:05 | disposition home or self-care (01) ==
LOC: ANHLAB 11:10
PROVIDERS: PCP Nurse Practitioner Family; Visit Provider Internal Medicine Hematology & Oncology
DX: D72.829 Elevated white blood cell count, unspecified (principal)
CPT/HCPCS: 36415; 80053; 81206; 81207; 85025; 85652; 86140; 88184; 88185

== ENCOUNTER 2023-03-05 11:27 | Outpatient (CLI) | payer MEDICARE, OTHER, SELFPAY ==
[2023-03-05 11:42] LABS: Basophils Absolute Auto 0.1 K/mm3 (0.0-0.1); Eosinophils Absolute Auto 0.2 K/mm3 (0-0.3); Eosinophils Percent Auto 1.7 % (0-4.4); Hematocrit 49.3 % (37.0-47.0); Immature Granulocyte Absolute 0.09 K/mm3 (0.00-0.031); Immature Granulocyte Percent A 0.6 % (0-0.5); Lymphocytes Absolute Auto 4.29 K/mm3 (0.9-3.2); Lymphocytes Percent Auto 30.4 % (18.3-44.2); Mean Corpuscular HGB Conc 32.5 g/dl (32-36); Mean Corpuscular Hemoglobin 29.7 pg (26-34); Mean Corpuscular Volume 91.6 fl (80-100); Neutrophils Absolute Auto 8.4 K/mm3 (1.3-6.7); Neutrophils Percent Auto 59.3 % (45.5-73.1); Platelet Count Result 421 k/mm3 (150-375); Red Blood Count 5.38 M/mm3 (4.2-5.4); Red Cell Distribution Width 14.6 % (11.5-14.5); White Blood Count 14.1 K/mm3 (4.5-10.0)
== END 2023-03-05 11:28 | disposition home or self-care (01) ==
LOC: ANHLAB 11:29
PROVIDERS: PCP Nurse Practitioner Family; Visit Provider Internal Medicine Hematology & Oncology
DX: D72.829 Elevated white blood cell count, unspecified (principal)
CPT/HCPCS: 36415; 85025

== ENCOUNTER 2023-09-05 10:36 | Outpatient (CLI) | payer MEDICARE, OTHER, SELFPAY ==
[2023-09-05 10:49] LABS: Basophils Absolute Auto 0.1 K/mm3 (0.0-0.1); Basophils Percent Auto 1.1 % (0.2-1.2); Eosinophils Absolute Auto 0.2 K/mm3 (0-0.3); Eosinophils Percent Auto 1.4 % (0-4.4); Hematocrit 45.4 % (37.0-47.0); Hemoglobin 14.6 g/dL (12.0-15.0); Immature Granulocyte Absolute 0.05 K/mm3 (0.00-0.031); Immature Granulocyte Percent A 0.4 % (0-0.5); Lymphocytes Absolute Auto 3.57 K/mm3 (0.9-3.2); Lymphocytes Percent Auto 27.8 % (18.3-44.2); Mean Corpuscular HGB Conc 32.2 g/dl (32-36); Mean Corpuscular Hemoglobin 29.4 pg (26-34); Mean Corpuscular Volume 91.5 fl (80-100); Mean Platelet Volume 8.7 fl (7.4-10.4); Monocytes Absolute Auto 0.8 K/mm3 (0.1-0.6); Monocytes Percent Auto 6.3 % (2.6-8.5); Neutrophils Absolute Auto 8.1 K/mm3 (1.3-6.7); Platelet Count Result 363 k/mm3 (150-375); Red Blood Count 4.96 M/mm3 (4.2-5.4); Red Cell Distribution Width 14.6 % (11.5-14.5); White Blood Count 12.8 K/mm3 (4.5-10.0)
== END 2023-09-05 10:37 | disposition home or self-care (01) ==
LOC: ANHLAB 10:39
PROVIDERS: Nurse Practitioner Family; PCP Nurse Practitioner Family; Visit Provider Internal Medicine Hematology & Oncology
DX: D72.829 Elevated white blood cell count, unspecified (principal)
CPT/HCPCS: 36415; 85025